=== PATIENT | male | born 2000 | race Caucasian/White ===

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

== ENCOUNTER 2019-01-02 13:25 | Emergency (ER) | payer OTHER ==
[2019-01-02] MEDS ORDERED: LIDOCAINE 1% INJ 10MG/ML (20 ML MDV) SQ ONE (13:47)
[2019-01-02] MEDS ORDERED: SULFAMETH-TMP DS STARTER PACK 2 TAB BTL PO STA (14:18)
--- NOTE | 2019-01-02 14:22 | ED ---
Skin/Abscess/FB HPI - General Chief complaint: Skin/Abscess/Foreign Body Stated complaint: Abscess Time Seen by Provider: 01/02/19 13:46 Source: patient, RN notes reviewed, old records reviewed Mode of arrival: ambulatory Limitations: no limitations - History of Present Illness Initial comments: Patient's a 18-year-old male presents for shortness today for an abscess over his left buttocks. Patient reports he's noticed a small pimple over the area one week ago. Patient reports a pop and temporarily drainage since that time. In worsening redness and swelling. Patient reports that he's had no history of MRSA. He thinks that his symptoms started after he shaved the area was working out and was sweaty. Patient states that he has no history of MRSA resistant skin infection. - Related Data Home Medications Medication Instructions Recorded Confirmed Albuterol Inhaler [Ventolin Hfa 2 puff INHALATION RT-Q6H PRN 01/02/19 01/02/19 Inhaler] Previous Rx's Medication Instructions Recorded Sulfamethox-Tmp 800-160Mg [Bactrim 2 tab PO Q12HR #40 tab 01/02/19 DS 800-160 mg] Allergies Allergy/AdvReac Type Severity Reaction Status Date / Time codeine Allergy Unknown Verified 01/02/19 14:24 Childhood Penicillins Allergy Unknown Verified 01/02/19 14:24 Childhood Review of Systems ROS Statement: Those systems with pertinent positive or pertinent negative responses have been documented in the HPI. ROS Other: All systems not noted in ROS Statement are negative. Past Medical History Past Medical History: No Reported History History of Any Multi-Drug Resistant Organisms: None Reported Past Surgical History: No Surgical Hx Reported Past Psychological History: No Psychological Hx Reported Smoking Status: Former smoker Past Alcohol Use History: Occasional Past Drug Use History: Marijuana General Exam - General Exam Comments Initial Comments: Oriented well-appearing 18-year-old male. No significant distress. Limitations: no limitations Head exam: Present: atraumatic, normocephalic, normal inspection Eye exam: Present: normal appearance, PERRL, EOMI. Absent: scleral icterus, conjunctival injection, periorbital swelling ENT exam: Present: normal exam, mucous membranes moist Neck exam: Present: normal inspection. Absent: tenderness, meningismus, lymphadenopathy Respiratory exam: Present: normal lung sounds bilaterally. Absent: respiratory distress, wheezes, rales, rhonchi, stridor Cardiovascular Exam: Present: regular rate, normal rhythm, normal heart sounds. Absent: systolic murmur, diastolic murmur, rubs, gallop, clicks Extremities exam: Present: normal inspection, full ROM, normal capillary refill. Absent: tenderness, pedal edema, joint swelling, calf tenderness Back exam: Present: normal inspection, other (Patient has a 2 cm x 3 cm abscess over the left buttocks, lower tailbone area. It's a purulent yellow-green drainage noted.) Neurological exam: Present: alert, oriented X3, CN II-XII intact Psychiatric exam: Present: normal affect, normal mood Skin exam: Present: warm, dry, intact, normal color. Absent: rash Course Vital Signs 01/02/19 01/02/19 13:29 14:51 Temperature 97.4 F L 98.1 F Pulse Rate 71 75 Respiratory 16 16 Rate Blood Pressure 129/56 130/60 O2 Sat by Pulse 100 98 Oximetry Procedures - Incision & Drainage Indication: Abscess Site: buttock Size (cm): 2 Anesthetic Used: lidocaine 1% Amount (mLs): 5 I&D Cleaning Method: Iodine Sterile Field Used?: Yes Scalpel Used: #11 Irrigation Performed?: Yes I&D Drainage Obtained: Pus, Blood Packing: Iodoform Culture Obtained?: Yes Patient Tolerated Procedure: well, no complications Medical Decision Making - Medical Decision Making Is a 18-year-old male with left buttocks abscess. Patient has a 2 cm recent meter area of abscess with already draining open area. This was opened after injecting with lidocaine slightly more, and purulent fluid was removed. Aerobic wound culture obtained. Patient was advised the need to put him on antibiotics. Wound was packed. Discussed following up with surgeon to have the packing re- checked and repacked in 2 days. Discussed warm compresses over the area. Discussed return parameters. dsicharged the Patient with a starter pack for Bactrim. Disposition Clinical Impression: Abscess of buttock Disposition: HOME SELF-CARE Condition: Good Instructions (If sedation given, give patient instructions): Abscess Incision and Drainage (DC) Additional Instructions: Patient advised to keep the packing within abscess area for the next 2 days. Follow-up with surgeon. Take antibiotics as prescribed. Return to the emergency department if any alarming signs or symptoms occur. Prescriptions: Sulfamethox-Tmp 800-160Mg [Bactrim DS 800-160 mg] 2 tab PO Q12HR #40 tab Is patient prescribed a controlled substance at d/c from ED?: No Referrals: None,Stated [Primary Care Provider] - 1-2 days Angel Isaac MD [Medical Doctor] - 1-2 days Time of Disposition: 14:20
[2019-01-02 14:53] VITALS: BP 130/60; TEMP 98.1
[2019-01-02 15:04] VITALS: PULSE 75; RESP 16
== END 2019-01-02 14:51 | disposition home or self-care (01) ==
LOC: EC 13:25
DX: L02.31 Cutaneous abscess of buttock (principal); Z88.0 Allergy status to penicillin; Z88.5 Allergy status to narcotic agent; Z87.891 Personal history of nicotine dependence
CPT/HCPCS: 87070; 87205; 99284; 10060; J2001; 87077; 87186

== ENCOUNTER 2019-06-24 18:50 | Emergency (ER) | payer OTHER ==
[2019-06-24 18:53] VITALS: RESP 18; TEMP 97.9
--- NOTE | 2019-06-24 19:43 | ED ---
General Adult HPI - General Chief complaint: ENT Stated complaint: Lump in throat Time Seen by Provider: 06/24/19 19:09 Source: patient Mode of arrival: ambulatory Limitations: no limitations - History of Present Illness Initial comments: 18-year-old male patient presents to the emergency department today for evaluation of a lump on his chin. Patient states he's had it for the last couple of weeks seems like it has increased in size over the last 5 days. Denies any pain to the area. Denies redness, drainage. Denies any fever or chills. Denies any dental pain or infections. Denies history of similar symptoms. Patient denies any recent rash, cough, shortness of breath, chest pain, abdominal pain, nausea, vomiting, diarrhea, constipation, back pain, numbness, tingling, dizziness, weakness, hematuria, dysuria, urinary urgency, urinary frequency, headache, visual changes, or any other complaints. - Related Data Home Medications Medication Instructions Recorded Confirmed Albuterol Inhaler (Bulk) [Ventolin 2 puff INHALATION RT-Q6H PRN 01/02/19 01/02/19 Hfa Inhaler] Previous Rx's Medication Instructions Recorded Sulfamethox-Tmp 800-160Mg [Bactrim 2 tab PO Q12HR #40 tab 01/02/19 DS 800-160 mg] Cephalexin [Keflex] 500 mg PO Q6HR #40 cap 06/24/19 Allergies Allergy/AdvReac Type Severity Reaction Status Date / Time codeine Allergy Unknown Verified 06/24/19 18:53 Childhood Penicillins Allergy Unknown Verified 06/24/19 18:53 Childhood Review of Systems ROS Statement: Those systems with pertinent positive or pertinent negative responses have been documented in the HPI. ROS Other: All systems not noted in ROS Statement are negative. Past Medical History Past Medical History: No Reported History History of Any Multi-Drug Resistant Organisms: MRSA Date of last positivie culture/infection: 01/02/19 MDRO Source:: Buttocks Past Surgical History: No Surgical Hx Reported Past Psychological History: No Psychological Hx Reported Smoking Status: Current every day smoker Past Alcohol Use History: Occasional Past Drug Use History: Marijuana General Exam Limitations: no limitations General appearance: alert, in no apparent distress, other (This is a well- developed, well-nourished adult male patient in no acute distress. Vital signs upon presentation are temperature 97.9F, pulse 80, respirations 18, blood pressure 149/81, pulse ox 100% on room air) ENT exam: Present: normal exam, normal oropharynx, mucous membranes moist Neck exam: Present: normal inspection, lymphadenopathy (There is enlarged submental lymph node to the submental region. It is mobile. Approx 1cm. Nontender. No redness noted. ). Absent: tenderness, meningismus Respiratory exam: Present: normal lung sounds bilaterally. Absent: respiratory distress, wheezes, rales, rhonchi, stridor Cardiovascular Exam: Present: regular rate, normal rhythm, normal heart sounds. Absent: systolic murmur, diastolic murmur, rubs, gallop, clicks Neurological exam: Present: alert, oriented X3, CN II-XII intact Psychiatric exam: Present: normal affect, normal mood Skin exam: Present: warm, dry, intact, normal color. Absent: rash Course Vital Signs 06/24/19 06/24/19 18:51 19:57 Temperature 97.9 F Pulse Rate 80 74 Respiratory 18 18 Rate Blood Pressure 149/81 113/96 O2 Sat by Pulse 100 100 Oximetry Medical Decision Making - Medical Decision Making 18-year-old male patient presented to the emergency department today for evaluation of lump to his chin. Physical examination did reveal an enlarged submental lymph node. It is mobile, nontender, proximal 1 cm. We will start keflex for possible adenitis. He will be discharged to follow up with the ENT specialist for further evaluation in 1-2 days. Return parameters were discussed in detail. He verbalizes understanding and agrees with this plan. Disposition Clinical Impression: Enlarged submental lymph node Disposition: HOME SELF-CARE Condition: Good Instructions (If sedation given, give patient instructions): Lymphadenopathy (ED) Additional Instructions: Complete antibiotic prescription in full. Follow-up with the ENT specialist for further evaluation. Return to the emergency department immediately for any new, worsening, or concerning symptoms. Prescriptions: Cephalexin [Keflex] 500 mg PO Q6HR #40 cap Is patient prescribed a controlled substance at d/c from ED?: No Referrals: None,Stated [Primary Care Provider] - 1-2 days Time of Disposition: 19:42
[2019-06-24 19:59] VITALS: BP 113/96; PULSE 74
== END 2019-06-24 20:07 | disposition home or self-care (01) ==
LOC: EC 18:50
DX: R59.0 Localized enlarged lymph nodes (principal); F17.200 Nicotine dependence, unspecified, uncomplicated; Z88.0 Allergy status to penicillin; Z88.5 Allergy status to narcotic agent
CPT/HCPCS: 99282

== ENCOUNTER 2020-10-21 00:14 | Emergency (ER) | payer OTHER ==
[2020-10-21 00:20] VITALS: BP 121/76; PULSE 88; RESP 19; TEMP 98
--- NOTE | 2020-10-21 01:06 | ED ---
Psych HPI - General Chief Complaint: Psychiatric Symptoms Stated Complaint: Mental Health Time Seen by Provider: 10/21/20 00:37 Source: patient, police, RN notes reviewed, old records reviewed Mode of arrival: wheelchair Limitations: no limitations - History of Present Illness Initial Comments: This is a 20-year-old male to the ER for evaluation patient presents today for evaluation of depression. Ration does admit alcohol use. Patient is brought in for evaluation regarding possible increase in depression thoughts MD Complaint: feels depressed -: days(s) Associated Psychiatric Symptoms: depression History of same: Yes Quality: intermittent Improves With: none Worsens With: none Context: recent alcohol abuse Associated Symptoms: denies other symptoms Treatments Prior to Arrival: placed on mental health hold - Related Data Home Medications Medication Instructions Recorded Confirmed Albuterol Inhaler (Mhu) [Ventolin 2 puff INHALATION RT-Q6H PRN 01/02/19 01/02/19 Hfa Inhaler] Previous Rx's Medication Instructions Recorded Sulfamethox-Tmp 800-160Mg [Bactrim 2 tab PO Q12HR #40 tab 01/02/19 DS 800-160 mg] cephALEXin [Keflex] 500 mg PO Q6HR #40 cap 06/24/19 Allergies Allergy/AdvReac Type Severity Reaction Status Date / Time codeine Allergy Unknown Verified 10/21/20 00:20 Childhood Penicillins Allergy Unknown Verified 10/21/20 00:20 Childhood Review of Systems ROS Statement: Those systems with pertinent positive or pertinent negative responses have been documented in the HPI. ROS Other: All systems not noted in ROS Statement are negative. Past Medical History Past Medical History: No Reported History History of Any Multi-Drug Resistant Organisms: MRSA Date of last positivie culture/infection: 01/02/19 MDRO Source:: Buttocks Past Surgical History: No Surgical Hx Reported Past Psychological History: No Psychological Hx Reported Smoking Status: Former smoker Past Alcohol Use History: Daily Past Drug Use History: Marijuana General Exam General appearance: alert, in no apparent distress Head exam: Present: atraumatic, normocephalic, normal inspection Eye exam: Present: normal appearance, PERRL, EOMI. Absent: scleral icterus, conjunctival injection, periorbital swelling ENT exam: Present: normal exam, mucous membranes moist Neck exam: Present: normal inspection. Absent: tenderness, meningismus, lymphadenopathy Respiratory exam: Present: normal lung sounds bilaterally. Absent: respiratory distress, wheezes, rales, rhonchi, stridor Cardiovascular Exam: Present: regular rate, normal rhythm, normal heart sounds. Absent: systolic murmur, diastolic murmur, rubs, gallop, clicks GI/Abdominal exam: Present: soft, normal bowel sounds. Absent: distended, tenderness, guarding, rebound, rigid Extremities exam: Present: normal inspection, full ROM, normal capillary refill. Absent: tenderness, pedal edema, joint swelling, calf tenderness Back exam: Present: normal inspection Neurological exam: Present: alert, oriented X3, CN II-XII intact Psychiatric exam: Present: normal affect, normal mood Skin exam: Present: warm, dry, intact, normal color. Absent: rash Course Vital Signs 10/21/20 00:16 Temperature 98 F Pulse Rate 88 Respiratory 19 Rate Blood Pressure 121/76 O2 Sat by Pulse 98 Oximetry - Reevaluation(s) Reevaluation #1: 10/21/20 01:06 Medical records reviewed Reevaluation #2: 10/21/20 05:54 Patient medically clear for psychiatric evaluation Medical Decision Making - Medical Decision Making 20 male to the ER for evaluation patient presents today for alcohol intoxication evaluation of depression. patient is seen in however psychiatry and can be discharged home Disposition Clinical Impression: Depression, Alcohol intoxication Disposition: HOME SELF-CARE Condition: Fair Instructions (If sedation given, give patient instructions): Alcohol Intoxication (ED) Is patient prescribed a controlled substance at d/c from ED?: No Referrals: None,Stated [Primary Care Provider] - 1-2 days
== END 2020-10-21 06:42 | disposition home or self-care (01) ==
LOC: EC 00:14
DX: F32.9 Major depressive disorder, single episode, unspecified (principal); F10.129 Alcohol abuse with intoxication, unspecified; Z87.891 Personal history of nicotine dependence; Z88.0 Allergy status to penicillin; Z88.5 Allergy status to narcotic agent
CPT/HCPCS: 82075; 99283

== ENCOUNTER 2023-09-05 13:31 | Emergency (ER) | payer OTHER ==
[2023-09-05 13:51] VITALS: BP 135/93; PULSE 95; RESP 18; TEMP 98
--- NOTE | 2023-09-05 14:47 | ED ---
Skin/Abscess/FB HPI - General Chief complaint: Skin/Abscess/Foreign Body Stated complaint: Spider bite Time Seen by Provider: 09/05/23 14:30 Source: patient, RN notes reviewed Mode of arrival: ambulatory Limitations: no limitations - History of Present Illness Initial comments: 23-year-old male presenting with rash on back of neck x 3 days. States a few days ago he was camping in a tent in [place]. He believes he may have been bit by a spider because he saw many spiders inside of his tent. He now has a bump on the left side of the back of his neck that is growing in size and is very painful. He attempted to cut into the bump himself with a knife which expelled a small amount of drainage. Denies fever, chills, vomiting. He does have a history of MRSA after incarceration. - Related Data Home Medications Medication Instructions Recorded Confirmed Albuterol Inhaler [Ventolin Hfa 2 puff INHALATION RT-Q6H PRN 01/02/19 01/02/19 Inhaler] Previous Rx's Medication Instructions Recorded Sulfamethox-Tmp 800-160Mg [Bactrim 2 tab PO Q12HR #40 tab 01/02/19 DS 800-160 mg] cephALEXin [Keflex] 500 mg PO Q6HR #40 cap 06/24/19 Cephalexin [Keflex] 500 mg PO Q6HR 7 Days #28 cap 09/05/23 Sulfamethox-Tmp 800-160Mg [Bactrim 1 each PO Q12HR 7 Days #14 tab 09/05/23 Ds] Allergies Allergy/AdvReac Type Severity Reaction Status Date / Time codeine Allergy Unknown Verified 09/05/23 13:51 Childhood Penicillins Allergy Unknown Verified 09/05/23 13:51 Childhood Review of Systems ROS Statement: Those systems with pertinent positive or pertinent negative responses have been documented in the HPI. ROS Other: All systems not noted in ROS Statement are negative. Past Medical History Past Medical History: No Reported History History of Any Multi-Drug Resistant Organisms: MRSA Date of last positivie culture/infection: 01/02/19 MDRO Source:: Buttocks Past Surgical History: No Surgical Hx Reported Additional Past Surgical History / Comment(s): Piece of metal in left eye removed. Past Psychological History: No Psychological Hx Reported Smoking Status: Current every day smoker Past Alcohol Use History: Daily Past Drug Use History: Marijuana General Exam Limitations: no limitations General appearance: alert, in no apparent distress Head exam: Present: atraumatic, normocephalic, normal inspection Eye exam: Present: normal appearance, PERRL, EOMI. Absent: scleral icterus, conjunctival injection, periorbital swelling ENT exam: Present: normal exam, mucous membranes moist Neck exam: Present: full ROM, other (3 x 3 area of induration with tenderness and erythema on left side of posterior neck. No fluctuant mass present. No active drainage). Absent: meningismus, lymphadenopathy Respiratory exam: Present: normal lung sounds bilaterally. Absent: respiratory distress, wheezes, rales, rhonchi, stridor Cardiovascular Exam: Present: regular rate, normal rhythm, normal heart sounds. Absent: systolic murmur, diastolic murmur, rubs, gallop, clicks Extremities exam: Present: normal inspection, full ROM, normal capillary refill. Absent: tenderness, pedal edema, joint swelling, calf tenderness Neurological exam: Present: alert, oriented X3 Psychiatric exam: Present: normal affect, normal mood Skin exam: Present: warm, dry, intact, normal color Course Vital Signs 09/05/23 13:47 Temperature 98.0 F Pulse Rate 95 Respiratory 18 Rate Blood Pressure 135/93 O2 Sat by Pulse 100 Oximetry Medical Decision Making - Medical Decision Making Was pt. sent in by a medical professional or institution (TONY Gomez, ASSOCIATE PROFESSOR COMPUTER SCIENCE, urgent care, hospital, or detention...) When possible be specific @ -No Did you speak to anyone other than the patient for history (EMS, parent, family, police, friend...)? What history was obtained from this source @ -No Did you review nursing and triage notes (agree or disagree)? Why? @ -I reviewed and agree with nursing and triage notes Were old charts reviewed (outside hosp., previous admission, EMS record, old EKG, old radiological studies, urgent care reports/EKG's, detention records)? Report findings @ -No old charts were reviewed Differential Diagnosis (chest pain, altered mental status, abdominal pain women, abdominal pain men, vaginal bleeding, weakness, fever, dyspnea, syncope, headache, dizziness, GI bleed, back pain, seizure, CVA, palpatations, mental health, musculoskeletal)? @ -Differential Musculoskeletal Muscular strain, contusion, ligament sprain, fracture, arthritis, septic arthritis, bursitis, cellulitis, muscle spasm, nerve compression, DVT, arterial occlusion, herpes zoster, electrolyte abnormality, tumor.... This is not meant to be in all inclusive list EKG interpreted by me (3pts min.). @ -None X-rays interpreted by me (1pt min.). @ -None done CT interpreted by me (1pt min.). @ -None done U/S interpreted by me (1pt. min.). @ -None done What testing was considered but not performed or refused? (CT, X-rays, U/S, labs)? Why? @ -None What meds were considered but not given or refused? Why? @ -None Did you discuss the management of the patient with other professionals (professionals i.e. , PA, ASSOCIATE PROFESSOR COMPUTER SCIENCE, lab, RT, psych nurse, social security assessor, flight dynamicist, teacher, building drafting officer, gearcase assembler)? Give summary @ -No Was smoking cessation discussed for >3mins.? @ -No Was critical care preformed (if so, how long)? @ -No Were there social determinants of health that impacted care today? How? (Homelessness, low income, unemployed, alcoholism, drug addiction, transportation, low edu. Level, literacy, decrease access to med. care, [facility], rehab)? @ -No Was there de-escalation of care discussed even if they declined (Discuss DNR or withdrawal of care, Hospice)? DNR status @ -No What co-morbidities impacted this encounter? (DM, HTN, Smoking, COPD, CAD, Cancer, CVA, ARF, Chemo, Hep., AIDS, mental health diagnosis, sleep apnea, morbid obesity)? @ -None Was patient admitted / discharged? Hospital course, mention meds given and route, prescriptions, significant lab abnormalities, going to OR and other pertinent info. @ -Patient was discharged. Patient was seen and evaluated for bump on back of neck x 2 days. Patient was recently camping and believes he may have been bitten by spider. Denies fever or chills. He attempted to incise and drain the bump on his own and reports some drainage at this time. Vital signs are within normal limits. Physical examination reveals a 3 x 3 cm indurated, erythematous, tender mass on the left side of neck. No fluctuant mass. I&D not indicated at this time. Patient was given IM Toradol for pain. Tetanus was updated due to cellulitis secondary to possible spider bite. Prescribed Keflex and Bactrim. Denies known allergy to penicillin. Strict return parameters discussed with patient. Advised to follow-up with PCP in 1 to 3 days for reevaluation. Case discussed with my attending Dr. Rosa. patient discharged in stable condition. Undiagnosed new problem with uncertain prognosis? @ -No Drug Therapy requiring intensive monitoring for toxicity (Heparin, Nitro, Insulin, Cardizem)? @ -No Were any procedures done? @ -No Diagnosis/symptom? @ -Cellulitis of neck Acute, or Chronic, or Acute on Chronic? @ -Acute Uncomplicated (without systemic symptoms) or Complicated (systemic symptoms)? @ -Uncomplicated Side effects of treatment? @ -No Exacerbation, Progression, or Severe Exacerbation? @ -No Poses a threat to life or bodily function? How? (Chest pain, [place], [place], pneumonia, PE, COPD, DKA, ARF, appy, cholecystitis, CVA, Diverticulitis, Homicidal, Suicidal, threat to staff... and all critical care pts) @ -Unlikely at this time Disposition Clinical Impression: Cellulitis of neck Disposition: HOME SELF-CARE Condition: Stable Instructions (If sedation given, give patient instructions): Cellulitis (ED) Additional Instructions: Please take antibiotics as prescribed. Apply warm compresses to affected area 3 times daily. Follow-up with PCP in 1 to 3 days for reevaluation. Please return to the Emergency Department if symptoms worsen or any other concerns. Prescriptions: Sulfamethox-Tmp 800-160Mg [Bactrim Ds] 1 each PO Q12HR 7 Days #14 tab Cephalexin [Keflex] 500 mg PO Q6HR 7 Days #28 cap Is patient prescribed a controlled substance at d/c from ED?: No Referrals: None,Stated [Primary Care Provider] - 1-2 days Time of Disposition: 15:21
[2023-09-05] MEDS: KETOROLAC 15 MG/ML 1 ML VIAL IM STA (14:53)
[2023-09-05] MEDS: DIPH,PERTUS(ACELL)TETVAC-LF 0.5 ML VIAL IM ONE (14:56)
== END 2023-09-05 15:32 | disposition home or self-care (01) ==
LOC: EC 13:31
DX: L03.221 Cellulitis of neck (principal); F17.200 Nicotine dependence, unspecified, uncomplicated; F12.90 Cannabis use, unspecified, uncomplicated; Z88.5 Allergy status to narcotic agent; Z88.0 Allergy status to penicillin; Z23 Encounter for immunization
CPT/HCPCS: 90715; 99283; 96372; 90471; J1885

== ENCOUNTER 2024-08-23 14:15 | Emergency (ER) | payer OTHER ==
--- NOTE | 2024-08-23 14:41 | ED ---
Fall HPI - General Source: patient, RN notes reviewed Mode of arrival: ambulatory Limitations: no limitations <Zoey Bruce - Last Filed: 08/23/24 14:54> <Tamika Hicks - Last Filed: 08/23/24 16:51> - General Stated Complaint: R hand injury Time Seen by Provider: 08/23/24 14:40 - History of Present Illness Initial Comments: Quick note: 24-year-old male presented the ER for evaluation of a fall. Patient states he was on a ladder approximately 2 stories high yesterday when he accidentally fell. Patient states he did hit his forehead but denies loss of consciousness or blood thinner use. Patient complaining of nausea this morning. He is currently complaining of right hand pain and swelling. Incident occurred over 12 hours ago. No back or neck pain. (Zoey Bruce) Agree with above. He denies any chest pain, difficulty breathing, abdominal pain, numbness, tingling, nausea, weakness. (Tamika Hicks) - Related Data Home Medications Medication Instructions Recorded Confirmed Albuterol Inhaler [Ventolin Hfa 2 puff INHALATION RT-Q6H PRN 01/02/19 01/02/19 Inhaler] Previous Rx's Medication Instructions Recorded Sulfamethox-Tmp 800-160Mg [Bactrim 2 tab PO Q12HR #40 tab 01/02/19 DS 800-160 mg] cephALEXin [Keflex] 500 mg PO Q6HR #40 cap 06/24/19 Cephalexin [Keflex] 500 mg PO Q6HR 7 Days #28 cap 09/05/23 Sulfamethox-Tmp 800-160Mg [Bactrim 1 each PO Q12HR 7 Days #14 tab 09/05/23 Ds] Allergies Allergy/AdvReac Type Severity Reaction Status Date / Time codeine Allergy Unknown Verified 08/23/24 14:55 Childhood Penicillins Allergy Unknown Verified 08/23/24 14:55 Childhood Review of Systems ROS Other: All systems not noted in ROS Statement are negative. <Zoey Bruce - Last Filed: 08/23/24 14:54> ROS Other: All systems not noted in ROS Statement are negative. <Tamika Hicks - Last Filed: 08/23/24 16:51> ROS Statement: Those systems with pertinent positive or pertinent negative responses have been documented in the HPI. Past Medical History Past Medical History: No Reported History History of Any Multi-Drug Resistant Organisms: MRSA Date of last positivie culture/infection: 01/02/19 MDRO Source:: Buttocks Past Surgical History: No Surgical Hx Reported Additional Past Surgical History / Comment(s): Piece of metal in left eye removed. Past Psychological History: No Psychological Hx Reported Smoking Status: Current every day smoker Past Alcohol Use History: Daily Past Drug Use History: Marijuana <Zoey Bruce - Last Filed: 08/23/24 14:54> General Exam <Zoey Bruce - Last Filed: 08/23/24 14:54> Limitations: no limitations General appearance: alert, in no apparent distress Expanded Head exam: Present: abrasion (Patient does have some abrasions and a hematoma on his forehead) Eye exam: Present: normal appearance, EOMI. Absent: periorbital swelling Neck exam: Present: normal inspection. Absent: meningismus Respiratory exam: Absent: respiratory distress Cardiovascular Exam: Present: regular rate Right Hand Wrist exam: Present: tenderness, swelling. Absent: full ROM Neurological exam: Present: alert, oriented X3 Psychiatric exam: Present: normal affect, normal mood Skin exam: Present: warm, dry <Tamika Hicks - Last Filed: 08/23/24 16:51> - General Exam Comments Initial Comments: Visual Physical Exam Vital signs reviewed General: Well-appearing, nontoxic, no acute distress. Head: Normocephalic, atraumatic Eyes: PERRLA, EOMI ENT: Airway patent Chest: Nonlabored breathing Skin: No visual rash, normal skin tone, abrasion to forehead Neuro: Alert and oriented 3 Musculoskeletal: Edema right hand (Zoey Bruce) Course Vital Signs 08/23/24 08/23/24 14:49 16:28 Temperature 98.1 F 98.1 F Pulse Rate 95 85 Respiratory 18 20 Rate Blood Pressure 134/85 122/85 O2 Sat by Pulse 99 98 Oximetry Medical Decision Making <Zoey Bruce - Last Filed: 08/23/24 14:54> <Tamika Hicks - Last Filed: 08/23/24 16:51> - Medical Decision Making I performed the quick note portion of this chart. Electronically signed by Zoey Bruce PA-C (Zoey Bruce) Was pt. sent in by a medical professional or institution (TONY Gomez, CAKE PRESS OPERATOR, urgent care, hospital, or senior living...) When possible be specific @ -No Did you speak to anyone other than the patient for history (EMS, parent, family, police, friend...)? What history was obtained from this source @ -No Did you review nursing and triage notes (agree or disagree)? Why? @ -I reviewed and agree with nursing and triage notes Were old charts reviewed (outside hosp., previous admission, EMS record, old EKG, old radiological studies, urgent care reports/EKG's, senior living records)? Report findings @ -No old charts were reviewed Differential Diagnosis (chest pain, altered mental status, abdominal pain women, abdominal pain men, vaginal bleeding, weakness, fever, dyspnea, syncope, headache, dizziness, GI bleed, back pain, seizure, CVA, palpatations, mental health, musculoskeletal)? @ -Differential Musculoskeletal Muscular strain, contusion, ligament sprain, fracture, arthritis, septic arthritis, bursitis, cellulitis, muscle spasm, nerve compression, DVT, arterial occlusion, herpes zoster, electrolyte abnormality, tumor.... This is not meant to be in all inclusive list EKG interpreted by me (3pts min.). @ -As above X-rays interpreted by me (1pt min.). @ -X-ray negative for acute fracture or dislocation of the hand CT interpreted by me (1pt min.). @ -CT negative for acute intracranial process U/S interpreted by me (1pt. min.). @ -None done What testing was considered but not performed or refused? (CT, X-rays, U/S, labs)? Why? @ -None What meds were considered but not given or refused? Why? @ -None Did you discuss the management of the patient with other professionals (professionals i.e. TONY Gomez, CAKE PRESS OPERATOR, lab, RT, psych nurse, social worker health services, energy trader, teacher, special forces warrant officer, patient case manager)? Give summary @ -No Was smoking cessation discussed for >3mins.? @ -No Was critical care preformed (if so, how long)? @ -No Were there social determinants of health that impacted care today? How? (Homelessness, low income, unemployed, alcoholism, drug addiction, transportation, low edu. Level, literacy, decrease access to med. care, [facility], rehab)? @ -No Was there de-escalation of care discussed even if they declined (Discuss DNR or withdrawal of care, Hospice)? DNR status @ -No What co-morbidities impacted this encounter? (DM, HTN, Smoking, COPD, CAD, [place], CVA, ARF, Chemo, Hep., AIDS, mental health diagnosis, sleep apnea, morbid obesity)? @ -None Was patient admitted / discharged? Hospital course, mention meds given and route, prescriptions, significant lab abnormalities, going to OR and other pertinent info. @ -24-year-old male presenting with chief complaint of right hand injury. Patient fell off of a ladder while working yesterday. No loss of consciousness or blood thinners. He did hit his head. Workup was initiated by triage. X-ray negative for fracture or dislocation and CT negative for acute intracranial process. On my examination patient does have some significant swelling and tenderness over the ulnar aspect of the hand. He is placed in an ulnar gutter splint and instructed to follow-up with orthopedics. Educated on supportive management at home. Follow-up with PCP. Report back to ER with any new or worsening symptoms. Discussed return parameters and answered all questions. Patient conveyed verbal understanding and agreed to the plan. I discussed this case in detail with my attending Dr. Rubalcava Undiagnosed new problem with uncertain prognosis? @ -No Drug Therapy requiring intensive monitoring for toxicity (Heparin, Nitro, Insulin, Cardizem)? @ -No Were any procedures done? @ -No Diagnosis/symptom? @ -Hand sprain, head injury Acute, or Chronic, or Acute on Chronic? @ -Acute Uncomplicated (without systemic symptoms) or Complicated (systemic symptoms)? @ -Uncomplicated Side effects of treatment? @ -No Exacerbation, Progression, or Severe Exacerbation? @ -No Poses a threat to life or bodily function? How? (Chest pain, [place], [place], pneumonia, PE, COPD, DKA, ARF, appy, cholecystitis, CVA, Diverticulitis, Homicidal, Suicidal, threat to staff... and all critical care pts) @ -Unlikely (Tamika Hicks) Disposition <Zoey Bruce - Last Filed: 08/23/24 14:54> Is patient prescribed a controlled substance at d/c from ED?: No Time of Disposition: 16:23 <Tamika Hicks - Last Filed: 08/23/24 16:51> Clinical Impression: Hand sprain Disposition: HOME SELF-CARE Condition: Good Instructions (If sedation given, give patient instructions): Hand Sprain (ED) Additional Instructions: Follow-up with orthopedics. Report back to ER with any new or worsening symptoms. Take Motrin and Tylenol as needed for pain control. Rest ice and elevate the hand. Referrals: None,Stated [Primary Care Provider] - 1-2 days Ju Sousa [Doctor of Osteopathic Medicine] - 1-2 days Kenny Mckeon MD [STAFF PHYSICIAN] - 1-2 days
[2024-08-23 14:55] VITALS: TEMP 98.1
--- NOTE | 2024-08-23 15:13 | CT ---
EXAMINATION TYPE: CT brain wo con CT DLP: 1097.6 mGycm, Automated exposure control for dose reduction was used. DATE OF EXAM: 08/23/2024 3:07 PM COMPARISON: None. CLINICAL INDICATION:Male, 24 years old with history of fall with head injury, fell off roof hitting h ead. Pain TECHNIQUE: Brain: Multiple axial CT images of the brain were obtained without IV contrast. . Coronal and sagitta l reformats reviewed. FINDINGS: Brain: Extra-axial spaces: No abnormal extra-axial fluid collections. Ventricular system: Within normal limits Cerebral parenchyma: No acute intraparenchymal hemorrhage or mass effect. The boone-white junction is well differentiated. Cerebellum: Unremarkable. Mass effect: No evidence of midline shift. Intracranial vasculature: unremarkable Soft tissues: Normal. Calvarium/osseous structures: No depressed skull fracture. Paranasal sinuses and mastoid air cells: Clear Visualized orbits: Orbital contents are intact. IMPRESSION: No acute intracranial process. [facility], , 08/23/2024 3:11 PM
--- NOTE | 2024-08-23 15:33 | XR ---
EXAMINATION TYPE: XR hand complete RT DATE OF EXAM: 08/23/2024 2:48 PM COMPARISON: None. CLINICAL INDICATION: Male, 24 years old with history of injury, pain TECHNIQUE: 3 view(s) obtained. FINDINGS: No acute fracture or dislocation is evident. Joint spaces are preserved. There is an old fifth metaca rpal fracture with some angulation. Soft tissues and mild soft tissue swelling. Follow up exams can be performed 7-10 days from acute trauma for continued pain. IMPRESSION: 1. No acute osseous abnormality right hand. 2. Mild soft tissue swelling may be present. [facility], , 08/23/2024 3:30 PM
[2024-08-23 16:30] VITALS: BP 122/85; PULSE 85; RESP 20
== END 2024-08-23 16:47 | disposition home or self-care (01) ==
LOC: EC 14:15
DX: S63.91XA Sprain of unspecified part of right wrist and hand, initial encounter (principal); F17.200 Nicotine dependence, unspecified, uncomplicated; Z88.0 Allergy status to penicillin; Z88.5 Allergy status to narcotic agent; W19.XXXA Unspecified fall, initial encounter; W11.XXXA Fall on and from ladder, initial encounter
CPT/HCPCS: 29125; 70450; 99284